=== PATIENT | female | born 1990 | race Caucasian/White ===

== ENCOUNTER 2016-08-16 09:48 | Emergency (ER) | payer SELFPAY ==
[~2016-08-16] VITALS: Ht 157.5 cm; Wt 59.1 kg
[~2016-08-16 09:48] MED LIST: PNV1CAPS42 PO
[2016-08-16] MEDS ORDERED: TraMADol HCL 50 MG TABLET PO ONE (13:15)
[2016-08-16 15:42] VITALS: BP 119/85
== END 2016-08-16 16:05 | disposition home or self-care (01) ==
LOC: EMS 09:52
DX: S16.9XXA Unspecified injury of muscle, fascia and tendon at neck level, initial encounter (principal); Y08.89XA Assault by other specified means, initial encounter; Y93.89 Activity, other specified; Y92.89 Other specified places as the place of occurrence of the external cause; Y99.8 Other external cause status
CPT/HCPCS: 70486; 70490; 99284

== ENCOUNTER 2016-10-12 12:39 | Emergency (ER) | payer SELFPAY ==
[~2016-10-12] VITALS: Ht 154.9 cm; Wt 59.1 kg
[2016-10-12] MEDS ORDERED: IBUPROFEN 800 MG TABLET PO ONE (13:15)
[2016-10-12] MEDS ORDERED: BACITRACIN 0.9 GM PACKET OINTMENT TP ONE (13:15)
[2016-10-12 15:27] VITALS: BP 122/87
== END 2016-10-12 15:27 | disposition home or self-care (01) ==
LOC: EMS 12:41
DX: S80.01XA Contusion of right knee, initial encounter (principal); S80.02XA Contusion of left knee, initial encounter; W01.0XXA Fall on same level from slipping, tripping and stumbling without subsequent striking against object, initial encounter; Y93.89 Activity, other specified; Y92.89 Other specified places as the place of occurrence of the external cause; Y99.8 Other external cause status
CPT/HCPCS: 99284